=== PATIENT | female | born 1950 | race Caucasian/White ===

== ENCOUNTER 2022-01-09 21:50 | Emergency (ER) | payer MEDICARE, MEDICAID, SELFPAY ==
--- NOTE | ~2022-01-09 | XR_ITS ---
EXAMINATION: XR chest 1V portable DATE: 01/10/2022 00:15 INDICATION: Altered mental status TECHNIQUE: frontal view of the chest was obtained. COMPARISON: None FINDINGS: Calcified nodules in the left midlung zone consistent with old granulomatous disease. No other airspa ce opacities, pulmonary edema, pleural effusion or pneumothorax. The cardiomediastinal silhouette is normal. Cholecystectomy clips in the right upper quadrant. IMPRESSION: 1. No acute cardiopulmonary disease. Reviewed, dictated and finalized at location A.
--- NOTE | ~2022-01-09 | CT_ITS ---
EXAMINATION: CT brain wo con DATE: 01/10/2022 00:20 INDICATION: Headache and confusion TECHNIQUE: Computed tomography (CT) of the head was performed without intravenous contrast. Sagittal and coronal reconstructions were performed. The mA was adjusted according to patient size. Iterative reconstruction technique was employed. The dose-length product was 605.33 mGy-cm. COMPARISON: None FINDINGS: No acute intracranial hemorrhage, acute infarction or abnormal extra axial fluid collection. There is mild scattered white matter hypoattenuation consistent with chronic small vessel ischemic disease. V entricles are normal and symmetric. No mass/mass effect. The orbits, paranasal sinuses and mastoid ai r cells are normal. IMPRESSION: 1. Mild scattered white matter hypoattenuation consistent with chronic small vessel ischemic disease. No acute intracranial process. Reviewed, dictated and finalized at location A. IMPRESSION: 1. Mild scattered white matter hypoattenuation consistent with chronic small ve ssel ischemic disease. No acute intracranial process.
[2022-01-09 21:54] VITALS: BP 120/61; PULSE 96; RESP 18; TEMP 36.1; O2SAT 100
--- NOTE | 2022-01-09 22:26 | PC.NURSE ---
2226-I WAS STOPPED IN WAITING ROOM BY PATIENT. PATIENT WANTED TO KNOW IF EMS DOCUMENTED THEY DROPPED ME WHEN THEY MOVED ME FROM STRETCHER TO WHEELCHAIR. PATIENT'S ONLY COMPLAINT CONTINUED TO BE HER ORIGINAL COMPLAINT OF PAIN TO BACK OF HER HEAD.
--- NOTE | 2022-01-10 00:01 | ED.HA ---
HPI - Headache General Chief Complaint: Headache Stated Complaint: headache x2 days Time Seen by Provider: 01/09/22 23:34 History of Present Illness HPI Narrative: 71-year-old female with history of TBI, Parkinson's [facility] from [facility] because she is worried that when she woke up today, she forgot who she was. She often has headaches since she had her TBI 3 years ago, and she has had her usual headache which improved after getting Tylenol. She now remembers where she is and where she is, but she was worried that there is something wrong with her and just wants to be checked. Related Data Allergies Allergy/AdvReac Type Severity Reaction Status Date / Time No Known Allergies Allergy Verified 01/09/22 22:00 Review of Systems Review of Systems: CONST: No fever. HEENT: No sore throat C/V: No chest pain RESP: No cough GI: No abdominal pain : No dysuria. M/S: No joint pain. SKIN: No rash. NEURO: Had headache earlier now resolved; had transient confusion earlier now resolved PSYCH: [No depression] [facility] Past Medical History Medical History (Updated 01/10/22 @ 06:39 by Stephanie Vazquez MD) TBI (traumatic brain injury) Social History Social History (Updated 01/10/22 @ 06:40 by Stephanie Vazquez MD) Living arrangements: assisted living Exam Narrative: EXAMINATION OF ORGAN SYSTEMS/BODY AREAS: Constitutional: Vital signs per nursing GENERAL:[No acute distress, non-toxic appearing.] HEAD: Normal with no signs of head trauma. EYES: EOMI, conjunctiva normal ENT: Hearing grossly intact LUNGS: Nonlabored breathing. HEART: [Regular rate and rhythm] ABD: [Soft], [tender to palpation] EXT: Normal range of motion SKIN: [No rashes or lesions.] NEURO: [Alert and oriented x 3. No gross focal sensory or strength deficits.] PSYCH: Normal affect Course Vital Signs Vital signs: Vital Signs Temperature 97.0 F L 01/09/22 21:54 Pulse Rate 96 01/09/22 21:54 Respiratory Rate 18 01/09/22 21:54 Blood Pressure 120/61 01/09/22 21:54 Pulse Oximetry 100 01/09/22 21:54 Oxygen Delivery Room Air 01/09/22 21:54 Temperature 97.0 F L 01/09/22 21:54 Pulse Rate 72 07/29/22 01:56 Respiratory Rate 20 01/10/22 01:56 Blood Pressure 127/73 01/10/22 01:56 Pulse Oximetry 98 01/10/22 01:56 Oxygen Delivery Room Air 01/09/22 21:54 MDM - Headache MDM Narrative Medical decision making narrative: 71-year-old female with history of TBI and dementia who is here because she was worried that she had an episode of confusion earlier this morning, vital signs stable, exam shows well-appearing patient who is now alert and with normal neurologic exam who is currently at her baseline. I suspect most likely her memory issue is chronic dementia/Parkinson's and TBI, however given her concerns I will obtain a basic work-up including head CT. Everything was within acceptable limits, CT head does not show any acute abnormality. Patient is reassured and she is stable for discharge home with follow-up to her primary care doctor, return as needed. Lab Data Result diagrams: 01/10/22 00:03 01/10/22 00:03 Labs: Lab Results 01/10/22 01/10/22 01/10/22 Range/Units 00:03 00:03 01:30 WBC 8.0 (4.5-10.0) K/mm3 RBC 4.35 (4.2-5.4) M/mm3 Hgb 13.1 (12.0-15.0) g/dL Hct 41.1 (37.0-47.0) % MCV 94.5 (80-100) fl MCH 30.1 (26-34) pg MCHC 31.9 L (32-36) g/dl RDW 13.5 (11.5-14.5) % Plt Count 283 (150-375) k/mm3 MPV 9.5 (7.4-10.4) fl Immature Gran % (Auto) 0.1 (0-0.5) % Neut % (Auto) 56.5 (45.5-73.1) % Lymph % (Auto) 30.6 (18.3-44.2) % [place] % (Auto) 8.0 (2.6-8.5) % Eos % (Auto) 3.9 (0-4.4) % Baso % (Auto) 0.9 (0.2-1.2) % Lymph # (Auto) 2.44 (0.9-3.2) K/mm3 [place] # (Auto) 0.6 (0.1-0.6) K/mm3 Eos # (Auto) 0.3 (0-0.3) K/mm3 Baso # (Auto) 0.1 (0.0-0.1) K/mm3 Abs Immat Gran (auto) 0.01 (0.00-0.031) K/mm
[2022-01-10 00:08] LABS: Basophils Absolute Auto 0.1 K/mm3 (0.0-0.1); Basophils Percent Auto 0.9 % (0.2-1.2); Eosinophils Absolute Auto 0.3 K/mm3 (0-0.3); Eosinophils Percent Auto 3.9 % (0-4.4); Hematocrit 41.1 % (37.0-47.0); Hemoglobin 13.1 g/dL (12.0-15.0); Immature Granulocyte Absolute 0.01 K/mm3 (0.00-0.031); Immature Granulocyte Percent A 0.1 % (0-0.5); Lymphocytes Absolute Auto 2.44 K/mm3 (0.9-3.2); Lymphocytes Percent Auto 30.6 % (18.3-44.2); Mean Corpuscular HGB Conc 31.9 g/dl (32-36); Mean Corpuscular Hemoglobin 30.1 pg (26-34); Mean Corpuscular Volume 94.5 fl (80-100); Mean Platelet Volume 9.5 fl (7.4-10.4); Monocytes Absolute Auto 0.6 K/mm3 (0.1-0.6); Neutrophils Absolute Auto 4.5 K/mm3 (1.3-6.7); Neutrophils Percent Auto 56.5 % (45.5-73.1); Platelet Count Result 283 k/mm3 (150-375); Red Blood Count 4.35 M/mm3 (4.2-5.4); Red Cell Distribution Width 13.5 % (11.5-14.5)
[2022-01-10 00:19] LABS: Alanine Aminotransferase 10 U/L (6-35); Albumin Level 4.1 g/dL (3.5-5.1); Alkaline Phosphatase 76 U/L (38-126); Anion Gap 10 mmol/L (8-16); Aspartate Amino Transferase 21 U/L (14-36); Bilirubin,Total 0.3 mg/dL (0.2-1.3); Blood Urea Nitrogen 11 mg/dL (7-17); Calcium 9.2 mg/dL (8.4-10.2); Carbon Dioxide 25 mmol/L (22-30); Chloride 106 mmol/L (98-107); Estimated CRCL calculation 42 ml/min; Estimated Glomerular Filt Rate > 60; Glucose 114 mg/dL (65-110); Potassium 3.7 mmol/L (3.4-5.0); Sodium 141 mmol/L (137-145)
--- NOTE | 2022-01-10 00:25 | PC.NURSE ---
pt attempted to provide urine sample. Pt unable to provide enough for sample to be sent
[2022-01-10 01:20] VITALS: BP 126/82; PULSE 101; RESP 18; O2SAT 98
[2022-01-10 01:34] LABS: Appearance Urine Clear (Clear); Bilirubin Urine Negative (Negative); Blood Urine Negative (Negative); Color Urine Yellow (Yellow); Glucose Urine UA Negative (Negative); Ketones Urine Negative (Negative); Leukocyte Esterase Ur Negative LEU/UL (Negative); Nitrate Urine Negative (Negative); Protein Urine Negative (Negative); Urobilinogen Urine 0.2 mg/dL (<2.0)
[2022-01-10 01:56] VITALS: BP 127/73; PULSE 72; RESP 20; O2SAT 98
[2022-01-10 02:11] LABS: Add Urine Microscopic? NO
== END 2022-01-10 05:16 ==
PROVIDERS: Emergency Provider Emergency Medicine; PCP Internal Medicine
DX: R41.3 Other amnesia (principal); G20 Parkinson's disease; F03.90 Unspecified dementia, unspecified severity, without behavioral disturbance, psychotic disturbance, mood disturbance, and anxiety; Z87.820 Personal history of traumatic brain injury
CPT/HCPCS: 36415; 51701; 70450; 71045; 80053; 81003; 85025; 99284

== ENCOUNTER 2023-06-23 03:13 | Day surgery (SDC) | payer MEDICARE, MEDICAID, SELFPAY ==
[2023-06-16 09:10] VITALS: BMI 16.1
--- NOTE | 2023-06-19 10:48 | SUR.PREOP ---
Patient called regarding upcoming procedure. Spoke with Nurse at Rehab facility. Reviewed preop instructions, appointment times, and procedure prep.
[2023-06-23 11:15] VITALS: BP 104/63; PULSE 105; RESP 18; TEMP 36.1; O2SAT 98; BMI 35.6
--- NOTE | 2023-06-23 11:39 | P.PNAN_ITS ---
Anes - Eval Pre Procedure Procedure: Operation Date: 06/23/23 12:30 Proposed Procedures p Esophagogastroduodenoscopy & Colonoscopy - Stew Johnson MD Date/Time: 06/23/23 11:39 Pre Op Diagnosis: Nausea,Vomiting,Dysphagia,Hematemesis,Constipation Patient Data Age: 73 Gender: F Height: 1.6 m Weight: 91.3 kg Last Vital Signs Temp 36.1 C L 06/23/23 11:15 Pulse 105 H 06/23/23 11:15 Resp 18 06/23/23 11:15 BP 104/63 06/23/23 11:15 Pulse Ox 98 06/23/23 11:15 O2 Del Method Room Air 06/23/23 11:15 Allergies Allergy/AdvReac Type Severity Reaction Status Date / Time No Known Allergies Allergy Verified 06/23/23 11:14 Home Medications Medication Instructions Recorded Confirmed Type docusate sodium 100 mg capsule 100 mg PO QHS #30 caps 04/01/23 06/16/23 Rx lidocaine 4 % topical patch 1 patch topical DAILY 04/01/23 06/16/23 History (Aspercreme (lidocaine)) polyethylene glycol 3350 17 17 g PO BID #510 grams 04/01/23 06/16/23 Rx gram/dose oral powder (Miralax) acetaminophen 650 mg 650 mg PO TID PRN pain 06/16/23 06/16/23 History tablet,extended release baclofen 10 mg tablet 10 mg PO TID PRN Spasms 06/16/23 06/16/23 History bisacodyl 10 mg rectal suppository 10 mg RECTAL DAILY PRN Constipation 06/16/23 06/16/23 History (Dulcolax (bisacodyl)) diphenhydramine HCl 25 mg capsule 25 mg PO QID PRN Sinus Symptoms 06/16/23 06/16/23 History (Benadryl) esomeprazole magnesium 20 mg 20 mg PO DAILY 06/16/23 06/16/23 History capsule,delayed release guaifenesin 600 mg tablet, 600 mg PO BID PRN Congestion 06/16/23 06/16/23 History extended release 12 hr (Mucinex) lactulose 10 gram/15 mL oral 10 g PO DAILY 06/16/23 06/16/23 History solution loperamide 2 mg tablet 2 mg PO QID PRN Diarrhea 06/16/23 06/16/23 History Patient hx anesthesia problems: none Family hx anesthesia problems: none Results Review: All pre-operative results and documents have been reviewed as part of the pre-operative evaluation. [facility] Past Medical History Medical History (Updated 06/23/23 @ 11:39 by Hanny Gracia CRNA) Body mass index (BMI) less than 20 Change in bowel habits Constipation Dysphagia Family hx of colon cancer H/O appendicitis Hematemesis HTN (hypertension) Nausea and vomiting Parkinsons TBI (traumatic brain injury) Surgical History Surgical History History of nasal surgery Family History Family History Father Carcinoma of colon COPD (chronic obstructive pulmonary disease) Appendicitis Mother Breast cancer Thyroid cancer Bone cancer Sibling Thyroid cancer Social History Social History (Updated 04/01/23 @ 10:33 by TARIK Caldwell) Smoking status: Never smoker Second hand tobacco smoke exposure: Yes Alcohol intake: never Substance use: never Substance use type: does not use Lack of Transportation: No Lack of Food: Never True Current Housing: I Have Housing Concerned About Future Housing: No Difficulty Paying Gas/Electric Bills: No
--- NOTE | 2023-06-23 11:40 | PM.HPGS ---
History of Present Illness History of Present Illness Consent: Risks, benefits, and alternatives have been discussed and questions answered. Patient agrees to proceed with procedure. Chief complaint: Nausea,Vomiting,Dysphagia,Hematemesis,Constipation Narrative: Kalee Gee is a 73 year old female with nausea, constipation and family history of colon cancer. She lives in prison and she is not best historian, caregiver is here. Review of Systems Constitutional: Constitutional: Denies fever(s) Comments: using WC Eyes: Eyes: Denies blurry vision ENT: Reports Normal hearing present and Denies neck pain Cardiovascular: Cardiovascular: Denies chest pain and Denies dyspnea Respiratory: Respiratory: Denies dyspnea Gastrointestinal: Gastrointestinal: Reports constipation Genitourinary: Genitourinary: Denies dysuria Musculoskeletal: Musculoskeletal: Denies neck pain Integumentary/Breasts: Skin/Breast: Denies dry skin Neurologic: Reports Normal hearing present and Denies weakness Psychiatric: Psychiatric: Denies anxiety Hematologic/Lymphatic: Hematologic/Lymphatic: Denies easy bleeding Allergic/Immunologic: Allergic/Immunologic: Denies urticaria PMF Past Medical History Medical History (Updated 06/23/23 @ 11:39 by Hanny Gracia CRNA) Body mass index (BMI) less than 20 Change in bowel habits Constipation Dysphagia Family hx of colon cancer H/O appendicitis Hematemesis HTN (hypertension) Nausea and vomiting Parkinsons TBI (traumatic brain injury) Surgical History Surgical History History of nasal surgery Family History Family History Father Carcinoma of colon COPD (chronic obstructive pulmonary disease) Appendicitis Mother Breast cancer Thyroid cancer Bone cancer Sibling Thyroid cancer Social History Social History (Updated 04/01/23 @ 10:33 by TARIK Caldwell) Smoking status: Never smoker Second hand tobacco smoke exposure: Yes Alcohol intake: never Substance use: never Substance use type: does not use Lack of Transportation: No Lack of Food: Never True Current Housing: I Have Housing Concerned About Future Housing: No Difficulty Paying Gas/Electric Bills: No Difficulty Paying for Meds: No Currently Unemployed: No Education: High School Diploma/GED Difficulty w/ Childcare or Family Care: No Living arrangements: prison Occupation/Education: retired 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 Gender identity (if verbalized by the patient): Female Spiritual care concerns: No Meds Home Medications and Allergies Home Medications Medication Instructions Recorded Confirmed Type docusate sodium 100 mg capsule 100 mg PO QHS #30 caps 04/01/23 06/16/23 Rx lidocaine 4 % topical patch 1 patch topical DAILY 04/01/23 06/16/23 History (Aspercreme (lidocaine)) polyethylene glycol 3350 17 17 g PO BID #510 grams 04/01/23 06/16/23 Rx gram/dose oral powder (Miralax) acetaminophen 650 mg 650 mg PO TID PRN pain 06/16/23 06/16/23 History tablet,extended release baclofen 10 mg tablet 10 mg PO TID PRN Spasms 06/16/23 06/16/23 History bisacodyl 10 mg rectal suppository 10 mg RECTAL DAILY PRN Constipation 06/16/23 06/16/23 History (Dulcolax (bisacodyl)) diphenhydramine HCl 25 mg capsule 25 mg PO QID PRN Sinus Symptoms 06/16/23 06/16/23 History (Benadryl) esomeprazole magnesium 20 mg 20 mg PO DAILY 06/16/23 06/16/23 History capsule,delayed release guaifenesin 600 mg tablet, 600 mg PO BID PRN Congestion 06/16/23 06/16/23 History extended release 12 hr (Mucinex) lactulose 10 gram/15 mL oral 10 g PO DAILY 06/16/23 06/16/23 History solution loperamide 2 mg tablet 2 mg PO QID PRN Diarrhea 06/16/23 06/16/23 History Allergies Allergy/AdvReac Type Severity Reaction Statu
--- NOTE | 2023-06-23 11:44 | P.PNAN_ITS ---
Anes - Eval Final PreProcedure Day of Procedure 06/23/23 11:44 Patient weight: obese Heart: regular rate and rhythm Lungs: clear to auscultation Airway: Mallampati scale class II Neurological: alert and oriented Last oral intake: >/= 8 hours ASA classification: III Emergent: no Anesthetic plan: proceed Anesthesia type and monitoring: general GIVS and standard monitoring Results Review: All pre-operative results and documents have been reviewed as part of the pre- operative evaluation. Informed Consent: The patient's anesthetic plan and its attendant risks and benefits were discussed with the patient/family/POA. Questions were solicited and answers provided to the satisfaction of the patient/family/POA.
[2023-06-23] MEDS: LACTATED RINGERS 1,000 ML 150 ML IV CONT (11:50)
--- NOTE | 2023-06-23 12:11 | SUR.OPER ---
EGD START: 1159; END: 1203. COLONOSCOPY START: 1207; END: 1219.
[2023-06-23 12:23] VITALS: BP 101/43; PULSE 93; RESP 19; O2SAT 97
[2023-06-23 12:33] VITALS: BP 105/75; PULSE 88; RESP 12; O2SAT 97
[2023-06-23 12:43] VITALS: BP 128/81; PULSE 93; RESP 14; O2SAT 98
== END 2023-06-23 12:59 ==
PROVIDERS: PCP Internal Medicine; Visit Provider Internal Medicine Gastroenterology
PROC: 0DJ08ZZ Inspection of Upper Intestinal Tract, Via Natural or Artificial Opening Endoscopic (ICD-10-PCS; CPT 43235; principal; 2023-06-23 12:30)
DX: K59.00 Constipation, unspecified (principal); K64.8 Other hemorrhoids; K44.9 Diaphragmatic hernia without obstruction or gangrene; K29.70 Gastritis, unspecified, without bleeding; G20.A1 Parkinson's disease without dyskinesia, without mention of fluctuations; I10 Essential (primary) hypertension; Z87.820 Personal history of traumatic brain injury
CPT/HCPCS: 45378; 43239; 88305; 88342; J2704; J7120